=== PATIENT | male | born 1970 | race Caucasian/White ===

== ENCOUNTER 2016-08-17 21:18 | Observation (INO) | payer BC ==
[2016-08-17] MEDS ORDERED: ASPIRIN 81 MG TABLET, CHEWABLE PO ONE (22:33)
[2016-08-17 22:59] LABS: ABSOLUTE BASOPHILS # (AUTO) 0.1 10^3/uL (0.0-0.2); ABSOLUTE EOSINOPHILS # (AUTO) 0.3 10^3/uL (0.0-0.6); ABSOLUTE LYMPHOCYTES (AUTO) 2.8 10^3/uL (0.5-4.7); ABSOLUTE MONOCYTES (AUTO) 0.7 10^3/uL (0.1-1.4); ABSOLUTE NEUT (AUTO) 3.5 10^3/uL (1.7-8.2); BASOPHILS % (AUTO) 1.1 % (0-2); EOSINOPHILS % (AUTO) 3.4 % (0-6); HEMATOCRIT 42.3 % (37.9-51.0); HEMOGLOBIN 13.4 g/dL (13.5-17.0); HGB HCT DIFFERENCE -2.1; LYMPHOCYTES % (AUTO) 38.3 % (13-45); MEAN CORPUSCULAR HEMOGLOBIN 25.1 pg (27.0-33.4); MEAN CORPUSCULAR HGB CONC 31.7 g/dL (32.0-36.0); MEAN CORPUSCULAR VOLUME 79 fl (80-97); MONOCYTES % (AUTO) 9.8 % (3-13); RED BLOOD COUNT 5.34 10^6/uL (4.35-5.55); RED CELL DISTRIBUTION WIDTH 17.4 % (11.5-14.0); SEGMENTED NEUTROPHILS % (AUTO) 47.4 % (42-78); WHITE BLOOD COUNT 7.4 10^3/uL (4.0-10.5)
[2016-08-17] MEDS ORDERED: TETRACAINE HCL 0.5% OPH SOLN 2 ML OU ONE (22:59)
--- NOTE | 2016-08-17 22:59 | ER Document Report ---
ED Cardiac - General Mode of Arrival: Ambulatory Information source: Patient - HPI Patient complains to provider of: Chest tightness Associated symptoms: Other - See above <HORTENSIA DHILLON - Last Filed: 08/18/16 06:03> <JAMIR WHITE - Last Filed: 08/18/16 06:22> - General Chief Complaint: Chest Pain Stated Complaint: chest tightness Time Seen by Provider: 08/17/16 22:48 Notes: Patient is a 45 year old male, with a past medical history including hypothyroidism and iron deficiency, who presents to the emergency department with his and daughter complaining of chest tightness onset just prior to arrival. Patient states he was playing a board game with his family, he got up to walk into the kitchen and then passed out hitting his right eye on the counter top. reports patient was only unconscious for a brief moment and woke up with no confusion or slurred speech, she denies seeing any seizure like activity. Patient states he was diaphoretic when he woke and had chest tightness which has not gone away. Patient states he ate a brisket sandwich about an hour before the event. Patient denies blood in stool or blurry vision. Patient is currently visiting the area from out of town and drove in. Patient has no family history of heart attacks, his father had COPD, mother had HTN, and his daughter is a Type 1 diabetic. (HORTENSIA DHILLON) - Related Data Allergies/Adverse Reactions: No Known Allergies Allergy (Unverified 08/17/16 21:42) Past Medical History - General Information source: Patient - Social History Smoking Status: Never Smoker Cigarette use (# per day): No Frequency of alcohol use: None Family History: Reviewed & Not Pertinent <HORTENSIA DHILLON - Last Filed: 08/18/16 06:03> Review of Systems - Review of Systems Constitutional: See HPI, Diaphoresis EENT: denies: Blurred vision Cardiovascular: See HPI, Chest pain - tightness, Syncope Respiratory: No symptoms reported Gastrointestinal: denies: Blood streaked bowels Genitourinary: No symptoms reported Male Genitourinary: No symptoms reported Musculoskeletal: No symptoms reported Skin: No symptoms reported Hematologic/Lymphatic: No symptoms reported Neurological/Psychological: No symptoms reported -: Yes All other systems reviewed and negative <HORTENSIA DHILLON - Last Filed: 08/18/16 06:03> Physical Exam <HORTENSIA DHILLON - Last Filed: 08/18/16 06:03> - HEENT Eyes: Periorbital ecchymosis. No: Periorbital edema Conjunctiva: Normal. No: Injected Cornea: Normal. No: Corneal ulcer, Flourescein stain uptake Extraocular movements intact: Yes Eyelashes: Normal Pupils: PERRL Right intraocular pressure: 14 Left intraocular pressure: 14 Lids everted for exam: bilateral: Normal Anterior chamber: Normal. No: Hyphema Nerve palsy: No <JAMIR WHITE - Last Filed: 08/18/16 06:22> - Vital signs Vitals: Temp Pulse BP Pulse Ox 98.1 F 82 167/95 H 98 08/17/16 21:43 08/17/16 21:43 08/17/16 21:43 08/17/16 21:43 - Notes Notes: GENERAL: Alert, interacts well. No acute distress. HEAD: Slight ecchymosis and swelling to lateral aspect of right eyebrow, no step offs or lesions noted. No hematoma. EYES: Pupils equal, round, and reactive to light. Extraocular movements intact. Conjuctiva mildly injected bilaterally. ENT: Oral mucosa moist, tongue midline. NECK: Full range of motion. Supple. Trachea midline. LUNGS: Clear to auscultation bilaterally, no wheezes, rales, or rhonchi. No respiratory distress. HEART: Regular rate and rhythm. No murmurs, gallops, or rubs. ABDOMEN: Soft, non-tender. Non-distended. Bowel sounds present in all 4 quadrants. EXTREMITIES: Moves all 4 extremities spontaneously. No edema, radial and dorsalis pedis pulses 2/4 bilaterally. No cyanosis. NEUROLOGICAL: Alert and oriented x3. Normal speech. Cranial nerves II through XII grossly intact. Biceps and patellar DTRs 2+ bilaterally. PSYCH: Normal affect, normal mood. SKIN: Warm, dry, normal turgor. (HORTENSIA DHILLON) Course - Laboratory Result Diagrams: 08/17/16 22:40 08/17/16 22:40 - Consults Dr. Love Time consulted: 01:23 <HORTENSIA DHILLON - Last Filed: 08/18/16 06:03> - Laboratory Result Diagrams: 08/17/16 22:40 08/17/16 22:40 <JAMIR WHITE - Last Filed: 08/18/16 06:22> - Re-evaluation Re-evalutation: 08/18/16 04:41 CBC shows mild anemia with hemoglobin 13.4 otherwise unremarkable, coags normal , CMP grossly unremarkable, cardiac enzymes negative, urinalysis unremarkable, EKG is nonischemic, one nitroglycerin relieved the patient's pain. Chest x-ray shows no acute process, CT angiogram of the chest and abdomen was ordered to rule out pulmonary embolism and aortic dissection after the patient had a syncopal episode which was followed by chest pain, this also revealed no acute process, CT scan of the head was also negative. Discussed the patient with Dr. Love who accepted the patient to his service in observation status. (JAMIR WHITE) - Vital Signs Vital signs: Temp Pulse Resp BP Pulse Ox 98.4 F 82 16 115/78 97 08/18/16 02:00 08/17/16 21:43 08/18/16 05:01 08/18/16 05:00 08/18/16 04:01 - Laboratory Laboratory results interpreted by me: 08/17/16 08/17/16 22:40 22:40 Hgb 13.4 L MCV 79 L MCH 25.1 L MCHC 31.7 L RDW 17.4 H Alkaline Phosphatase 144 H - EKG Interpretation by Me Additional EKG results interpreted by me: 08/18/16 04:41 EKG shows sinus rhythm at a rate of 76, normal axis, normal intervals, no ST segment elevations or depressions, no T-wave inversions per my interpretation. ( JAMIR WHITE) - Consults Dr. Love Reason for consultation: 08/18/16 01:23 Dr. Love was with patient, will wait for return call. 08/18/16 02:50 Attempted to discuss admission with Dr. Love who states he will not discuss patient due to the acuity of his other patients. 08/18/16 04:38 Dr. Love agrees to admit patient (HORTENSIA DHILLON) Discharge <HORTENSIA DHILLON - Last Filed: 08/18/16 06:03> - Discharge Admitting Provider: Hospitalist - Dr. Love Unit Admitted: Telemetry <JAMIR WHITE - Last Filed: 08/18/16 06:22> - Discharge Clinical Impression: Chest pain, rule out acute myocardial infarction Disposition: ADMITTED INPATIENT Scribe Attestation: 08/18/16 06:22 I personally performed the services described in the documentation, reviewed and edited the documentation which was dictated to the scribe in my presence, and it accurately records my words and actions. (JAMIR WHITE) Scribe Documentation - Scribe Written by Goyo:: goyo Weaver, 08/17/16, 1136 acting as scribe for :: Too <HORTENSIA DHILLON - Last Filed: 08/18/16 06:03>
[2016-08-17 23:03] LABS: APPEARANCE,URINE CLEAR; BILIRUBIN,URINE NEGATIVE (NEGATIVE); GLUCOSE, URINE NEGATIVE (NEGATIVE); KETONES,URINE NEGATIVE (NEGATIVE); LEUKOCYTE ESTERASE,URINE NEGATIVE (NEGATIVE); NITRITE,URINE NEGATIVE (NEGATIVE); PROTEIN,URINE NEGATIVE (NEGATIVE); URINE SPECIFIC GRAVITY 1.003; UROBILINOGEN,URINE NEGATIVE mg/dL (<2.0)
[2016-08-17 23:11] LABS: ALANINE AMINOTRANSFERASE 45 U/L (21-72); ALBUMIN 4.4 g/dL (3.5-5.0); ALKALINE PHOSPHATASE 144 U/L (38-126); ANION GAP 12 (5-19); ASPARTATE AMINO TRANSFERASE 30 U/L (17-59); BILIRUBIN,DIRECT 0.3 mg/dL (0.0-0.4); BILIRUBIN,TOTAL 0.3 mg/dL (0.2-1.3); BLOOD UREA NITROGEN 17 mg/dL (7-20); CALCIUM 9.7 mg/dL (8.4-10.2); CARBON DIOXIDE 27 mmol/L (22-30); CHLORIDE 102 mmol/L (98-107); CREATINE KINASE 87 U/L (55-170); CREATININE RESULT 1.21 mg/dL (0.52-1.25); GLUCOSE 91 mg/dL (75-110); POTASSIUM 4.6 mmol/L (3.6-5.0); SODIUM 141.3 mmol/L (137-145); TOTAL PROTEIN 7.6 g/dL (6.3-8.2)
[2016-08-17 23:33] LABS: CREATINE KINASE MB 0.53 ng/mL (<4.55)
[2016-08-17 23:34] LABS: TROPONIN I < 0.012 ng/mL
--- NOTE | 2016-08-17 23:40 | EKG REPORT ---
SEVERITY:- NORMAL ECG - SINUS RHYTHM : Confirmed by: Jorge Tabor 17-Aug-2016 23:38:58
[2016-08-18] MEDS ORDERED: NITROGLYCERIN 0.4 MG/TAB 25 TAB/BOTTLE SL PRN (00:01)
--- NOTE | 2016-08-18 00:29 | RADIOLOGY REPORT (SQ) ---
EXAM DESCRIPTION: CT HEAD WITHOUT COMPLETED DATE/TIME: 08/18/2016 12:08 am REASON FOR STUDY: syncope, hit head COMPARISON: None. TECHNIQUE: Axial images acquired through the brain without intravenous contrast. Images reviewed wi th bone, brain and subdural windows. Images stored on PACS. All CT scanners at this facility use dose modulation, iterative reconstruction, and/or weight based d osing when appropriate to reduce radiation dose to as low as reasonably achievable (ALARA). [facility]: Dose Right [facility]: CareDose [facility]: Dose Right [facility]: Teradose 4D [facility]: Blogvio RADIATION DOSE: 64.61 mGy. LIMITATIONS: None. FINDINGS: VENTRICLES: Normal size and contour. CEREBRUM: No masses. No hemorrhage. No midline shift. Normal segal/white matter differentiation. N o evidence for acute infarction. CEREBELLUM: No masses. No hemorrhage. No alteration of density. No evidence for acute infarction. EXTRAAXIAL SPACES: No fluid collections. No masses. ORBITS AND GLOBE: No intra- or extraconal masses. Normal contour of globe without masses. CALVARIUM: No fracture. PARANASAL SINUSES: Mild bilateral maxillary mucosal thickening. SOFT TISSUES: No mass or hematoma. OTHER: No other significant finding. IMPRESSION: No significant abnormality. TECHNICAL DOCUMENTATION: JOB ID: [id number] Quality ID # [id number]: Final reports with documentation of one or more dose reduction techniques (e.g., Au tomated exposure control, adjustment of the mA and/or kV according to patient size, use of iterative reconstruction technique) 2010 [employer]- All Rights Reserved
--- NOTE | 2016-08-18 00:34 | RADIOLOGY REPORT (SQ) ---
EXAM DESCRIPTION: CHEST PA/LAT COMPLETED DATE/TIME: 08/18/2016 12:23 am REASON FOR STUDY: chest pain COMPARISON: None. EXAM PARAMETERS: NUMBER OF VIEWS: two views TECHNIQUE: Digital Frontal and Lateral radiographic views of the chest acquired. RADIATION DOSE: NA LIMITATIONS: none FINDINGS: LUNGS AND PLEURA: No opacities, masses or pneumothorax. No pleural effusion. MEDIASTINUM AND HILAR STRUCTURES: No masses or contour abnormalities. HEART AND VASCULAR STRUCTURES: Heart normal size. No evidence for failure. BONES: No acute findings. HARDWARE: None in the chest. OTHER: No other significant finding. IMPRESSION: NO SIGNIFICANT RADIOGRAPHIC FINDING IN THE CHEST. TECHNICAL DOCUMENTATION: JOB ID: [id number] [employer]- All Rights Reserved
--- NOTE | 2016-08-18 00:34 | RADIOLOGY REPORT (SQ) ---
EXAM DESCRIPTION: CTA CHEST COMPLETED DATE/TIME: 08/18/2016 12:18 am REASON FOR STUDY: syncope, chest pain, r/o PE, dissection COMPARISON: CR, same day. TECHNIQUE: CT scan of the chest performed using helical scanning technique with dynamic intravenous contrast injection. Images reviewed with lung, soft tissue and bone windows. Reconstructed coronal and sagittal MPR images reviewed. Additional 3 dimensional post-processing performed to develop Maximal Intensity Projection images ([place] P). All images stored on PACS. All CT scanners at this facility use dose modulation, iterative reconstruction, and/or weight based d osing when appropriate to reduce radiation dose to as low as reasonably achievable (ALARA). [facility]: Dose Right [facility]: CareDose [facility]: Dose Right [facility]: Teradose 4D [facility]: Sportgenic CONTRAST TYPE AND DOSE: 79 mL Isovue 370- low osmolar. RENAL FUNCTION: Creatinine 1.2 RADIATION DOSE: 49.68 mGy. LIMITATIONS: None. FINDINGS: LUNGS AND PLEURA: No masses, infiltrates, pneumothorax. No pleural effusions, calcificati ons. AORTA AND GREAT VESSELS: No aneurysm or dissection. HEART: No pericardial effusion. PULMONARY ARTERIES: No emboli visualized in the main pulmonary arteries or the segmental branches. HILAR AND MEDIASTINAL STRUCTURES: No identified masses or abnormal nodes. HARDWARE: None in the chest. UPPER ABDOMEN: No significant findings. Limited exam. THYROID AND OTHER SOFT TISSUES: No masses. No adenopathy. BONES: Chronic mild deformity of the left mid clavicle may indicate old injury. 3D MIPS: Confirm above findings. OTHER: No other significant finding. IMPRESSION: NORMAL CTA OF THE CHEST. NO PULMONARY EMBOLI. TECHNICAL DOCUMENTATION: JOB ID: [id number] Quality ID # [id number]: Final reports with documentation of one or more dose reduction techniques (e.g., Au tomated exposure control, adjustment of the mA and/or kV according to patient size, use of iterative reconstruction technique) 2010 [employer]- All Rights Reserved
[2016-08-18 05:48] LABS: ADD ON TESTING BLD IN LAB ACKNOWLEDGE
[2016-08-18 06:16] LABS: CHOLESTEROL 216.06 mg/dL (0-200); Direct HDL 57 mg/dL (>40); TRIGLYCERIDES 84 mg/dL (<150)
[2016-08-18 06:27] LABS: DIRECT LDL 135 mg/dL (<100)
[2016-08-18] MEDS ORDERED: ACETAMINOPHEN 325 MG TABLET PO PRN (08:04)
[2016-08-18] MEDS ORDERED: MAG HYDROX/AL HYDROX/SIMETH SUSP 30 ML UDCUP PO PRN (08:07)
[2016-08-18 09:05] VITALS: BP 129/86
--- NOTE | 2016-08-18 09:26 | PDOC H&P ---
History of Present Illness Admission Date/PCP: 08/18/16 04:58 PCP [place]; in area on vacation Patient complains of: cp, syncope History of Present Illness: LESTER PARSON is a 45 year old male with underlying elevated blood pressure, without a specific diagnosis of hypertension, but no other personal or family cardiac history, who presents to the emergency room for evaluation of above complaints. Patient has been discussed with emergency room physician who evaluated the patient. Patient is from [place], and he and family are in the area on vacation. Were actually planning on returning to [place] today. Evening of the fourth, while playing a board game with his family, he got up to go to the kitchen. He suddenly passed out, striking his head on the countertop. Unconscious only for a brief moment. Woke up with no confusion or slurred speech. No witnessed seizure activity, including tremor, urinary or fecal incontinence, or biting of the tongue. Witnessed by his . No prior such episodes. When patient awoke, he felt diaphoretic, along with chest tightness that was relieved by a single sublingual nitroglycerin. Occasional mild reflux. States the above-noted discomfort felt like heartburn, along with possibly a pulled muscle. Currently resting quietly, chest pain-free. States he has had similar episodes of chest discomfort in the past. No prior cardiac workup. No history of myocardial infarction or congestive heart failure. Has been told on a number occasions when visiting his primary care physician that blood pressures were a bit elevated, but he has never been treated for same. No history of pulmonary embolus or DVT. No recent long trip with prolonged inactivity, or unusual lower extremity swelling or tenderness. Drove up from [place] over the weekend over 2 days. Number of stops along the way. Negative family history of coronary artery disease. No use of tobacco or illicit drugs. Case of beer every 4-6 weeks. Laboratory results are listed in [employer] and are reviewed. X-ray summary results are listed below, with full report(s) reviewed. . EKG reviewed. Social history/personal habits: . Has children. 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 Personal habits as noted above. No known drug allergies. Home medications initially autopopulated into [employer] may not accurately reflect patient's true medications, dosages, and/or frequencies. solder technician to reconcile medications. Medications discussed with patient. Unfortunately, patient not certain of all medications/dosages/frequencies. REVIEW OF SYSTEMS: Constitutional: No fever or chills. Eyes: Reading glasses. ENT: No swallowing problems or complaints. Tinnitus. Pulmonary: No current complaints. Cardiovascular: See history and present illness. Gastrointestinal: No current complaints, including nausea or vomiting. Skin: No current complaints, including rashes. Hematologic: Denies easy bruising. Neurologic: No current complaints, including numbness or tingling. Musculoskeletal: Mild joint pains, thought to be due to possible early arthritis. Psychiatric: Mild anxiety. Endocrine: No current complaints, including polyuria. Genitourinary: No current complaints, including dysuria. PHYSICAL EXAMINATION: 5 feet 9 inches tall. 95.8 kg. BMI 31.2 kg/m. Blood pressure 127/89. Pulse 72 and regular. Respirations are 14 and unlabored. 97% saturation on room air. Temperature 98.4. Slightly overweight otherwise well-nourished well-developed male appearing approximately his stated age. Initially asleep, but awakens easily. Pleasant alert and cooperative. No obvious distress other than somewhat anxious. and daughter are present at his side. Patient approves. Skin is warm and dry. No grossly obvious evidence of rash in areas of skin examined. No subcutaneous nodules palpated. ENT: Hearing grossly normal to normal conversation. Tongue midline on protrusion pink and slightly tacky. Eyes: No scleral icterus. Pupils equal and reactive to light at 4 mm. [place] conjunctivae. Neck is supple and nontender to gentle active range of motion and palpation. Midline trachea. No palpable thyroid nodule mass enlargement or tenderness. Lymphatic: No palpable cervical or clavicular nodes. Neck and lymphatic exams limited by patient body habitus. Psychiatric: Reasonable insight into acute and chronic medical issues. Oriented to time location and why here. Lungs: Auscultation reveals clear and equal breath sounds bilaterally. No use of accessory respiratory muscles. Cardiovascular: Heart regular rate and rhythm, without gallop murmur or rub. No carotid or abdominal aortic bruits. No ankle or pedal edema. Faintly palpable dorsalis pedis pulses. Abdomen:soft slightly distended nontender with positive bowel sounds. Unable to adequately evaluate abdomen for masses or organomegaly due to distention. Compression of upper abdomen does not reproduce his previously noted chest discomfort, but sternal and left anterior chest wall compression does Extremities: Feet are warm and dry. No calf tenderness to compression. No grossly obvious visual evidence of calf swelling. Gentle manipulation of lower extremities fails to reveal any obvious evidence of injury or instability to knees hips or ankles. Neurologic: Moves upper extremities grossly normally. Patellar reflexes 1+ on the right; not checked on the left at patient's request, due to arthritis involving his knee. Absent Babinski. Light touch is intact at feet. Dorsiflexion and plantarflexion of feet 5 / 5 and symmetric. Past Medical History Cardiac Medical History: Reports: Other - Elevated blood pressure without specific diagnosis of hypertension. Denies: Congestive Heart Failure, DVT, Hyperlipidema, Hypertension, Pulmonary Embolism Pulmonary Medical History: Reports: Sleep Apnea - Symptoms of sleep apnea, but with no formal testing so far Denies: Asthma, Chronic Obstructive Pulmonary Disease (COPD) EENT Medical History: Reports: Eyes - Glasses, Ears - Tinnitus Denies: Throat Neurological Medical History: Denies: Hemorrhagic CVA, Ischemic CVA, Seizures Endocrine Medical History: Reports: Hypothyroidism Denies: Diabetes Mellitus Type 1, Diabetes Mellitus Type 2, Hyperthyroidism Renal/ Medical History: Reports: Nephrolithiasis - Distant history GI Medical History: Reports: Gastroesophageal Reflux Disease - Mild Denies: Cirrhosis, Hepatitis, Peptic Ulcer Disease Musculoskeltal Medical History: Reports: Arthritis Skin Medical History: Reports: None Psychiatric Medical History: Reports: General Anxiety Disorder Denies: Alcohol Dependency, Depression, Substance Abuse, Tobacco Dependency Hematology: Reports: None Infectious Medical History: Denies: Clostridium Difficile, Hepatitis B, Hepatitis C, Methicillin- Resistant Staph Aureus Past Surgical History Past Surgical History: Reports: Orthopedic Surgery - Clavicle fracture repair, Other - Vasectomy Social History Information Source: Patient, Emergency Med Personnel, [facility] Records Lives with: Spouse/Significant other Smoking Status: Never Smoker Frequency of Alcohol Use: Social Drugs: None - Advance Directive Resuscitation Status: Full Code Surrogate healthcare decision maker:: Family History Family History: Reviewed & Not Pertinent Parental Family History Reviewed: Yes - Mother alive with hypertension. Father . Children Family History Reviewed: Yes - Daughter with seizure disorder; another daughter diabetic. Sibling(s) Family History Reviewed.: Yes - Healthy Medication/Allergy Allergies/Adverse Reactions: No Known Allergies Allergy (Unverified 08/17/16 21:42) Physical Exam Vital Signs: Temp Pulse Resp BP Pulse Ox 98.4 F 82 16 115/78 97 08/18/16 02:00 08/17/16 21:43 08/18/16 05:01 08/18/16 05:00 08/18/16 04:01 Results Laboratory Results: 08/18/16 05:26 Triglycerides 84 Cholesterol 216.06 H LDL Cholesterol Direct 135 H VLDL Cholesterol 17.0 HDL Cholesterol 57 08/18/16 05:26 Troponin I < 0.012 Impressions: Chest X-Ray 08/17/16 00:00 IMPRESSION: NO SIGNIFICANT RADIOGRAPHIC FINDING IN THE CHEST. Chest/Abdomen CTA 08/17/16 22:59 IMPRESSION: NORMAL CTA OF THE CHEST. NO PULMONARY EMBOLI. Head CT 08/17/16 23:38 IMPRESSION: No significant abnormality. Assessment & Plan - Diagnosis (1) Mechanical deep vein thrombosis (DVT) prophylaxis in place Is this a current diagnosis for this admission?: Yes (2) Precordial chest pain Is this a current diagnosis for this admission?: YesPlan: Likely musculoskeletal in origin, but Patient will be placed in observation bed under chest pain protocol. Patient understands to notify staff should chest pain recur. Serial troponin . Repeat EKG. lipid panel. I have strongly encouraged patient to be careful getting out of bed, to avoid a fall with injury. Knee high SCDs for DVT prophylaxis, along with subcu Lovenox. Impression and plans were discussed with patient and , both of whom concur. Time spent in evaluation and management of patient: 63 minutes. (3) Syncope Qualifiers: Syncope type: unspecified Qualified Code(s): R55 - Syncope and collapse Is this a current diagnosis for this admission?: YesPlan: Suspect vasovagal origin. Orthostatic vital signs every 4 hours while awake. (4) Hypothyroid Qualifiers: Hypothyroidism type: unspecified Qualified Code(s): E03.9 - Hypothyroidism, unspecified Is this a current diagnosis for this admission?: YesPlan: TSH level. Resume home medications as appropriate once these have been determined and reviewed.
[2016-08-18] MEDS ORDERED: DEXTROSE 5%-NORMAL SALINE 1,000 ML IV PRN (09:27)
[2016-08-18] MEDS ORDERED: DOCUSATE SODIUM 100 MG CAPSULE PO SCH (10:00)
[2016-08-18] MEDS ORDERED: ENOXAPARIN SODIUM INJ 40 MG/0.4 ML DISP.SYRIN SUBCUT SCH (10:00)
[2016-08-18] MEDS ORDERED: ASPIRIN 81 MG TABLET, ENT COATED PO SCH (10:00)
--- NOTE | 2016-08-18 12:53 | PDOC DISCHARGE SUMMARY ---
General - Admit/Disc Date/PCP Admission Date/Primary Care Provider: 08/18/16 04:58 Discharge Date: 08/18/16 - Discharge Diagnosis (1) Syncope Is this a current diagnosis for this admission?: Yes (2) Costochondritis Is this a current diagnosis for this admission?: Yes - Additional Information Resuscitation Status: Full Code Discharge Diet: Cardiac Discharge Activity: Activity As Tolerated History of Present Illness History of Present Illness: LESTER PARSON is a 45 year old male with no significant past medical history that had a syncopal episode. Patient states he was playing a board game with his family when he started laughing very hard. He stood up while laughing and passed out. He states he has had episodes in the past where he has seen spots in front of his eyes while laughing hard. After passing out he noted left- sided chest discomfort. Hospital Course Hospital Course: Patient had CTA of chest was negative for pulmonary embolism or acute process. Cardiac enzymes negative 2. Chest pain was reproducible and thought to be secondary to costochondritis. Syncopal episode based on his history is likely secondary to decreased cardiac return and orthostasis. He should follow-up with his primary care provider when he returns home to [place]. His cholesterol is slightly elevated and I have discussed to have him follow-up with his primary care provider for this. Physical Exam Vital Signs: Temp Pulse Resp BP Pulse Ox 97.8 F 82 13 129/86 H 97 08/18/16 09:05 08/17/16 21:43 08/18/16 09:00 08/18/16 09:00 08/18/16 04:01 GENERAL: No acute distress HEENT: Conjunctiva clear, nonicteric, moist mucous membranes, no JVD, midline trachea RESPIRATORY: Clear to auscultation bilaterally, no wheezes, no rhonchi CARDIAC: Regular rate and rhythm, no murmurs/gallops/rubs ABDOMEN: Soft, nondistended, nontender, positive bowel sounds, no rebound, no guarding EXTREMETIES: No edema, cyanosis, clubbing NEUROLOGIC: Alert, oriented to person/place/time, CN's grossly intact, no focal deficits SKIN: No rash, wounds PSYCH: Normal mood, normal affect Results Laboratory Results: 08/18/16 05:26 Triglycerides 84 Cholesterol 216.06 H LDL Cholesterol Direct 135 H VLDL Cholesterol 17.0 HDL Cholesterol 57 08/18/16 05:26 Troponin I < 0.012 Labs- All tests 24 hr 08/17/16 08/17/16 08/17/16 22:40 22:40 22:40 WBC 7.4 RBC 5.34 Hgb 13.4 L Hct 42.3 MCV 79 L MCH 25.1 L MCHC 31.7 L RDW 17.4 H Plt Count 336 Seg Neutrophils % 47.4 Lymphocytes % 38.3 Monocytes % 9.8 Eosinophils % 3.4 Basophils % 1.1 Absolute Neutrophils 3.5 Absolute Lymphocytes 2.8 Absolute Monocytes 0.7 Absolute Eosinophils 0.3 Absolute Basophils 0.1 PT 12.0 INR 0.83 Sodium 141.3 Potassium 4.6 Chloride 102 Carbon Dioxide 27 Anion Gap 12 BUN 17 Creatinine 1.21 Est GFR ( Amer) > 60 Est GFR (Non-Af Amer) > 60 Glucose 91 Calcium 9.7 Total Bilirubin 0.3 Direct Bilirubin 0.3 Indirect Bilirubin Not Reportable Neonat Total Bilirubin Not Reportable AST 30 ALT 45 Alkaline Phosphatase 144 H Creatine Kinase 87 CK-MB (CK-2) Troponin I Total Protein 7.6 Albumin 4.4 Triglycerides Cholesterol LDL Cholesterol Direct VLDL Cholesterol HDL Cholesterol Urine Color Urine Appearance Urine pH Ur Specific [place] Urine Protein Urine Glucose (UA) Urine Ketones Urine Blood Urine Nitrite Urine Bilirubin Urine Urobilinogen Ur Leukocyte Esterase Urine WBC (Auto) Urine Mucus (Auto) Urine Ascorbic Acid 08/17/16 08/17/16 08/18/16 22:40 22:40 05:26 WBC RBC Hgb Hct MCV MCH MCHC RDW Plt Count Seg Neutrophils % Lymphocytes % Monocytes % Eosinophils % Basophils % Absolute Neutrophils Absolute Lymphocytes Absolute Monocytes Absolute Eosinophils Absolute Basophils PT INR Sodium Potassium Chloride Carbon Dioxide Anion Gap BUN Creatinine Est GFR ( Amer) Est GFR (Non-Af Amer) Glucose Calcium Total Bilirubin Direct Bilirubin Indirect Bilirubin Neonat Total Bilirubin AST ALT Alkaline Phosphatase Creatine Kinase CK-MB (CK-2) 0.53 Troponin I < 0.012 < 0.012 Total Protein Albumin Triglycerides Cholesterol LDL Cholesterol Direct VLDL Cholesterol HDL Cholesterol Urine Color COLORLESS Urine Appearance CLEAR Urine pH 6.0 Ur Specific [place] 1.003 Urine Protein NEGATIVE Urine Glucose (UA) NEGATIVE Urine Ketones NEGATIVE Urine Blood NEGATIVE Urine Nitrite NEGATIVE Urine Bilirubin NEGATIVE Urine Urobilinogen NEGATIVE Ur Leukocyte Esterase NEGATIVE Urine WBC (Auto) 1 Urine Mucus (Auto) RARE Urine Ascorbic Acid NEGATIVE 08/18/16 05:26 WBC RBC Hgb Hct MCV MCH MCHC RDW Plt Count Seg Neutrophils % Lymphocytes % Monocytes % Eosinophils % Basophils % Absolute Neutrophils Absolute Lymphocytes Absolute Monocytes Absolute Eosinophils Absolute Basophils PT INR Sodium Potassium Chloride Carbon Dioxide Anion Gap BUN Creatinine Est GFR ( Amer) Est GFR (Non-Af Amer) Glucose Calcium Total Bilirubin Direct Bilirubin Indirect Bilirubin Neonat Total Bilirubin AST ALT Alkaline Phosphatase Creatine Kinase CK-MB (CK-2) Troponin I Total Protein Albumin Triglycerides 84 Cholesterol 216.06 H LDL Cholesterol Direct 135 H VLDL Cholesterol 17.0 HDL Cholesterol 57 Urine Color Urine Appearance Urine pH Ur Specific [place] Urine Protein Urine Glucose (UA) Urine Ketones Urine Blood Urine Nitrite Urine Bilirubin Urine Urobilinogen Ur Leukocyte Esterase Urine WBC (Auto) Urine Mucus (Auto) Urine Ascorbic Acid Impressions: Chest X-Ray 08/17/16 00:00 IMPRESSION: NO SIGNIFICANT RADIOGRAPHIC FINDING IN THE CHEST. Chest/Abdomen CTA 08/17/16 22:59 IMPRESSION: NORMAL CTA OF THE CHEST. NO PULMONARY EMBOLI. Head CT 08/17/16 23:38 IMPRESSION: No significant abnormality. Qualifiers PATEINT BEING DISCHARGED WITH ANY OF THE FOLLOWING DIAGNOSIS?: No Plan Time Spent: Less than 30 Minutes
[2016-08-18] MEDS ORDERED: ATORVASTATIN CALCIUM 40 MG TABLET PO SCH (22:00)
== END 2016-08-18 09:07 | disposition home or self-care (01) ==
LOC: ER 21:18 → INTOOBSV 08-18 04:58 → EH 08-18 04:58
PROVIDERS: ADMIT Family Medicine; ATTEND Family Medicine
DX: R55 Syncope and collapse (principal); M94.0 Chondrocostal junction syndrome [Tietze]; R03.0 Elevated blood-pressure reading, without diagnosis of hypertension; S05.11XA Contusion of eyeball and orbital tissues, right eye, initial encounter; Y92.000 Kitchen of unspecified non-institutional (private) residence as the place of occurrence of the external cause; W22.8XXA Striking against or struck by other objects, initial encounter; E03.9 Hypothyroidism, unspecified; H93.19 Tinnitus, unspecified ear; F41.1 Generalized anxiety disorder; D64.9 Anemia, unspecified; M19.90 Unspecified osteoarthritis, unspecified site; Z82.49 Family history of ischemic heart disease and other diseases of the circulatory system; Z82.0 Family history of epilepsy and other diseases of the nervous system; Z83.3 Family history of diabetes mellitus; Z82.5 Family history of asthma and other chronic lower respiratory diseases
CPT/HCPCS: 36415; 70450; 71020; 71275; 80053; 80061; 81001; 82550; 82553; 84484; 85025; 85610; 93005; 93010; 99285